=== PATIENT | female | born 1995 | race Two or more races ===

== ENCOUNTER 2018-03-01 19:24 | Emergency (ER) | payer OTHER ==
[~2018-03-01] VITALS: Ht 175.3 cm; Wt 53.1 kg
[2018-03-01] MEDS ORDERED: KETO10TA2 PO (21:50)
[2018-03-01] MEDS ORDERED: ORPHENADRINE C100 MG PO (21:50)
== END 2018-03-01 21:56 | disposition home or self-care (01) ==
LOC: ER 19:24
DX: R06.02 Shortness of breath (principal); M94.0 Chondrocostal junction syndrome [Tietze]